=== PATIENT | female | born 1960 | race Caucasian/White ===

== ENCOUNTER 2017-01-06 08:03 | Day surgery (SDC) | payer BC ==
[2017-01-03 10:56] VITALS: BMI 25.2
--- NOTE | 2017-01-05 23:24 | HP ---
HISTORY OF PRESENT ILLNESS: Ms. Navarro is known to us for prior ACDF spanning C5-C7 over a year ago . She has gone to a chiropractor recently for some neck pains and since that time, has had posterio r neck pain, right arm numbness and right interscapular pain in the C7 dermatome. She had an MRI at [facility] that reveals foraminal narrowing to the right at C6-C7 secondary to disk osteophyte complex, which seems to fit her symptoms well. She would prefer to move forward with surgery if po ssible. PAST MEDICAL HISTORY: Significant for lupus. PAST SURGICAL HISTORY: Cholecystectomy, hysterectomy and ACDF. FAMILY HISTORY: Father at 75, no noted medical history. Mother at 79. CURRENT MEDICATIONS: Premarin, HyoMax, Pristiq, sumatriptan, bupropion, Xanax, tramadol, Tylenol, p antoprazole and Neurontin. ALLERGIES: SULFA. PHYSICAL EXAMINATION: VITAL SIGNS: Patient is alert and oriented x3. NEUROLOGIC: Gait is normal, no ataxia. Upper extremity motor exam is normal. ASSESSMENT: Cervical radiculopathy. PLAN: Dr. Dang met with the patient, reviewed imaging and ultimately advocated for a posterior [place] child of right C6-C7 foraminotomy. He explained to the patient the risks, benefits, and alternative s to the procedure. The patient expressed understanding and would like to move forward with surgery as discussed. I do believe the patient is mentally competent and capable of making medical decisio ns for herself and we will move forward with surgery as planned. This is Jarad Pierre PA-C, dictating for Frandy Dang M.D.
[2017-01-06] MEDS ORDERED: CEFAZOLIN/Water 2 GM/20 ML SYRINGE ONE ×2 (08:18→14:55)
[2017-01-06] MEDS ORDERED: Bacitracin Zinc Ointment 30 gm TUBE ONE ×2 (09:42→10:25)
[2017-01-06] MEDS ORDERED: Thrombin 5000 UNITS/5 ML VIAL ONE (10:25)
[2017-01-06] MEDS ORDERED: Bupivacaine PF 0.5% 30 ML VIAL ONE (10:25)
[2017-01-06] MEDS ORDERED: Fentanyl 100 MCG/2 ML VIAL ONE ×2 (11:04→12:13)
--- NOTE | 2017-01-06 11:34 | OP ---
DATE OF PROCEDURE: 01/06/2017 SURGEON: Frandy Dang M.D. DECKHAND CRAB BOAT: Jarad Pierre PA-C INDICATION: Pain. DIAGNOSIS: C7 radiculopathy. PROCEDURES: Right C6-7 hemilaminectomy, medial facetectomy, foraminotomy, and decompression. ANESTHESIA: General. TECHNIQUE: The patient was brought into the operating room and placed under general anesthesia. Sh e was flipped from a supine to a prone position on the operating room table. A linear incision was planned over the C6-7 segment. After prepping and draping and after an appropriate operative pause, the incision was created. The soft tissues were swept right of midline and a self-retaining retrac tor was placed. A C-arm image was obtained to confirm the appropriate level. A high-speed cutting drill bit as well as 1 and 2 mm Kerrison was used to perform a foraminotomy over the exiting C7 nerv e root on the right. The wound was then irrigated. Hemostasis was maintained throughout. The woun d was then closed in anatomic layers and a pressure dressing was applied. There were no known proce dural complications.
== END 2017-01-06 15:15 | disposition home or self-care (01) ==
LOC: SDC 08:03
PROVIDERS: ATTEND Neurological Surgery
PROC: 01N10ZZ Release Cervical Nerve, Open Approach (ICD-10-PCS; principal; 2017-01-06)
DX: M54.12 Radiculopathy, cervical region (principal); M32.9 Systemic lupus erythematosus, unspecified; Z79.899 Other long term (current) drug therapy; Z88.2 Allergy status to sulfonamides; Z98.1 Arthrodesis status; Z96.1 Presence of intraocular lens; Z90.49 Acquired absence of other specified parts of digestive tract; Z90.710 Acquired absence of both cervix and uterus; Z98.890 Other specified postprocedural states
CPT/HCPCS: 76001; 96374; J3010; S0020

== ENCOUNTER 2017-04-30 15:24 | Outpatient (CLI) | payer BC | END 2017-04-30 15:25 | disposition home or self-care (01) | LOC: BICMAMMO 15:24 | PROVIDERS: ATTEND Family Medicine | DX: Z12.31 Encounter for screening mammogram for malignant neoplasm of breast (principal) | CPT/HCPCS: 77063; 77067 ==

== ENCOUNTER 2018-05-06 15:23 | Outpatient (CLI) | payer BC | END 2018-05-06 15:24 | disposition home or self-care (01) | LOC: BICMAMMO 15:23 | PROVIDERS: ATTEND Obstetrics & Gynecology | DX: Z12.31 Encounter for screening mammogram for malignant neoplasm of breast (principal) | CPT/HCPCS: 77063; 77067 ==

== ENCOUNTER 2019-05-10 11:04 | Outpatient (CLI) | payer BC ==
--- NOTE | 2019-05-10 14:09 | MMO ---
Bilateral MAMMO Bilat Screen [facility]. CLINICAL HISTORY: Patient is 59 years old and is seen for screening. The patient has no family history of breast cancer. The patient has no personal history of cancer. VIEWS: The views performed were: bilateral craniocaudal with tomosynthesis and bilateral mediolateral oblique with tomosynthesis. FILMS COMPARED: The present examination has been compared to prior imaging studies performed at 04/30/2017 and 05/06/2018. This study has been interpreted with the assistance of computer-aided detection. MAMMOGRAM FINDINGS: There are scattered fibroglandular densities. There are no suspicious masses, suspicious calcifications, or new areas of architectural distortion. IMPRESSION: THERE IS NO MAMMOGRAPHIC EVIDENCE OF MALIGNANCY. A ROUTINE FOLLOW-UP MAMMOGRAM IN 1 YEAR IS RECOMMENDED. THE RESULTS OF THIS EXAM WERE SENT TO THE PATIENT. ACR BI-RADS Category 1 - Negative MAMMOGRAPHY NOTE: 1. A negative mammogram report should not delay a biopsy if a dominant of clinically suspicious mass is present. 2. Approximately 10% to 15% of breast cancers are not detected by mammography. 3. Adenosis and dense breasts may obscure an underlying neoplasm. Reported by: ANITRA STACK MD Electonically Signed: [id number]
== END 2019-05-10 11:05 | disposition home or self-care (01) ==
LOC: BICMAMMO 11:04
PROVIDERS: ATTEND Obstetrics & Gynecology
DX: Z12.31 Encounter for screening mammogram for malignant neoplasm of breast (principal)
CPT/HCPCS: 77063; 77067

== ENCOUNTER 2022-06-11 08:26 | Outpatient (CLI) | payer BC ==
[2022-06-11] MEDS ORDERED: Iopamidol 370 76% 100 ML VIAL ONE (09:38)
== END 2022-06-11 08:27 | disposition home or self-care (01) ==
LOC: BICCT 08:26
PROVIDERS: ATTEND Internal Medicine Gastroenterology
DX: K52.9 Noninfective gastroenteritis and colitis, unspecified (principal); N39.0 Urinary tract infection, site not specified; Z87.440 Personal history of urinary (tract) infections; K76.9 Liver disease, unspecified; Z90.49 Acquired absence of other specified parts of digestive tract; Z90.710 Acquired absence of both cervix and uterus
CPT/HCPCS: 74177

== ENCOUNTER 2022-07-04 13:39 | Outpatient (CLI) | payer BC | END 2022-07-04 13:40 | disposition home or self-care (01) | LOC: TBSIIMAG 13:39 | PROVIDERS: ATTEND Internal Medicine Gastroenterology | DX: D18.03 Hemangioma of intra-abdominal structures (principal) | CPT/HCPCS: 74183 ==